=== PATIENT | female | born 1950 | race Hispanic/Latino ===

== ENCOUNTER 2020-05-15 15:23 | Observation (INO) | payer OTHER ==
[2020-05-15 16:12] LABS: Absolute Lymphocytes (CBC) 1.6 K/uL (0.7-4.9); Basophils % 0.3 % (0-1.3); Hematocrit 33.8 % (36.0-45.0); Lymphocytes % 29.2 % (15.3-44.8); MPV 9.5 fL (7.6-11.3); RBC Red Blood Cell Count 3.35 M/uL (3.86-4.86)
--- NOTE | 2020-05-15 16:29 | RAD REPORT ---
EXAM DESCRIPTION: RAD - Chest Single View - 05/15/2020 4:15 pm CLINICAL HISTORY: CHEST PAIN Chest pain. COMPARISON: No comparisons FINDINGS: Portable technique limits examination quality. The lungs are grossly clear. The heart is upper limit of normal in size. No displaced fractures. IMPRESSION: No acute intrathoracic process suspected.
[2020-05-15 16:41] LABS: ALT/SGPT 17 U/L (12-78); AST/SGOT 11 U/L (15-37); Albumin 3.8 g/dL (3.4-5.0); Alkaline Phosphatase 105 U/L (45-117); BUN Blood Urea Nitrogen 7 mg/dL (7-18); Bicarbonate 30 mmol/L (21-32); Bilirubin Direct < 0.1 mg/dL (0-0.2); Bilirubin Total 0.2 mg/dL (0.2-1.0); Glucose Level 116 mg/dL (74-106); NT PRO-BNP 468 pg/mL (<125); Potassium 3.4 mmol/L (3.5-5.1); Protein, Total 6.9 g/dL (6.4-8.2); Sodium Level 141 mmol/L (136-145); Troponin (Emerg Dept Use Only) < 0.02 ng/mL (0.0-0.045)
--- NOTE | 2020-05-15 17:53 | ER ---
Nurse's Notes [facility] Name: Laila Chou Age: 69 yrs Sex: Female : 1950 Arrival Date: 05/15/2020 Time: 15:32 Bed 5 Private MD: Diagnosis: Chest pain, unspecified Presentation: 05/15 15:32 Chief complaint: EMS states: Pt reports chest pain after bending over to pick something ph up at work, reports that it is sharp and stabbing, worse w/ deep breaths, denies N/V, SOB or dizziness, VSS, 12 lead normal. Coronavirus screen: Client denies travel out of the [place] in the last 14 days. At this time, the client does not indicate any symptoms associated with coronavirus-19. Ebola Screen: No symptoms or risks identified at this time. Initial Sepsis Screen: Does the patient meet any 2 criteria? No. Patient's initial sepsis screen is negative. Does the patient have a suspected source of infection? No. Patient's initial sepsis screen is negative. Risk Assessment: Do you want to hurt yourself or someone else? Patient reports no desire to harm self or others. Onset of symptoms was May 15, 2020. 15:32 Method Of Arrival: EMS: [facility] ph 15:32 Acuity: ANGELICA 3 ph Historical: - Allergies: 15:36 Aspirin; ph 15:36 Compazine; ph 15:36 Flexeril; ph 15:36 Imodium A-D; ph - Home Meds: 15:36 Omeprazole Oral [Active]; ph - Immunization history:: Adult Immunizations unknown. - Social history:: Smoking status: Patient denies any tobacco usage or history of. - Family history:: not pertinent. - Hospitalizations: : No recent hospitalization is reported. Screenin:37 Abuse screen: Denies threats or abuse. Denies injuries from another. Nutritional ph screening: No deficits noted. Tuberculosis screening: No symptoms or risk factors identified. Fall Risk None identified. Assessment: 15:38 General: Appears in no apparent distress. comfortable, well groomed, Behavior is calm, ph cooperative, appropriate for age, Denies fever, feeling ill. Pain: Complains of pain in anterior aspect of left upper chest Pain does not radiate. Quality of pain is described as sharp, stabbing, Pain began suddenly. Neuro: Level of Consciousness is awake, alert, obeys commands, Oriented to person, place, time, situation. Cardiovascular: Reports chest pain, Denies lightheadedness, nausea, palpitations, shortness of breath, Capillary refill < 3 seconds in bilateral fingers Patient's skin is warm and dry. Chest pain quality is sharp, stabbing, is located in left anterior chest wall began suddenly. Respiratory: Airway is patent Respiratory effort is even, unlabored, Respiratory pattern is regular, symmetrical, Denies shortness of breath. GI: No signs and/or symptoms were reported involving the gastrointestinal system. Derm: Skin is intact, is healthy with good turgor, Skin is pink, warm \T\ dry. 17:04 Reassessment: Patient appears in no apparent distress at this time. Patient and/or ph family updated on plan of care and expected duration. Pain level reassessed. Patient is alert, oriented x 3, equal unlabored respirations, skin warm/dry/pink. pt resting comfortably, VSS. 17:40 Reassessment: Pt taken to CT via stretcher. ph 19:04 Reassessment: Patient appears in no apparent distress at this time. Patient and/or ph family updated on plan of care and expected duration. Pain level reassessed. Patient is alert, oriented x 3, equal unlabored respirations, skin warm/dry/pink. 19:15 Reassessment: Patient appears in no apparent distress at this time. Patient and/or jb4 family updated on plan of care and expected duration. Pain level reassessed. Patient is alert, oriented x 3, equal unlabored respirations, skin warm/dry/pink. 20:03 Reassessment: Patient appears in no apparent distress at this time. Patient and/or jb4 family updated on plan of care and expected duration. Pain level reassessed. Patient is alert, oriented x 3, equal unlabored respirations, skin warm/dry/pink. Patient denies pain at this time. 20:05 Reassessment: Attempted to call report, receiving nurse is currently with a patient, jb4 instructed to wait for call back. 20:33 Reassessment: attempted to call report. no answer, will retry in 5 minutes. jb4 21:09 Reassessment: Patient appears in no apparent distress at this time. Patient and/or jb4 family updated on plan of care and expected duration. Pain level reassessed. Patient is alert, oriented x 3, equal unlabored respirations, skin warm/dry/pink. Report given to CODY King. Vital Signs: 15:32 BP 168 / 86; Pulse 68; Resp 18; Temp 98.1; Pulse Ox 100% on R/A; Weight 76.2 kg; Height ph 5 ft. 3 in. (160.02 cm); Pain 2/10; 17:05 BP 148 / 72; Pulse 61; Resp 18; Pulse Ox 99% on R/A; ph 18:00 BP 149 / 78; Pulse 61; Resp 18; Pulse Ox 99% on R/A; ph 19:00 BP 154 / 68; Pulse 67; Resp 16; Pulse Ox 98% on R/A; jb4 20:00 BP 142 / 66; Pulse 94; Resp 16; Temp 97.5(TE); Pulse Ox 99% on R/A; Pain 0/10; jb4 21:00 BP 144 / 63; Pulse 63; Resp 16; Pulse Ox 99% on R/A; jb4 15:32 Body Mass Index 29.76 (76.20 kg, 160.02 cm) ph ED Course: 15:32 Patient arrived in ED. ph 15:32 Curt Torres MD is Attending Physician. rn 15:36 Triage completed. ph 15:37 Arm band placed on Patient placed in an exam room, in a wheelchair, on conveyor monitor, ph on pulse oximetry. 15:37 Patient has correct armband on for positive identification. Placed in gown. Bed in low ph position. Call light in reach. Side rails up X 1. traffic monitor specialist on. Pulse ox on. NIBP on. Door closed. Noise minimized. Warm blanket given. 15:37 Maintain EMS IV. Dressing intact. Good blood return noted. Site clean \T\ dry. Gauge \T\ ph site: 18G LAC. Patient maintains SpO2 saturation greater than 95% on room air. 16:00 Melissa James, RN is Primary Nurse. ph 16:14 EKG done, by ED staff, reviewed by Curt Torres MD. dh3 16:15 XRAY Chest (1 view) In Process Unspecified. EDMS 17:47 CT Chest For PE Angio In Process Unspecified. EDMS 17:52 Shanique Higgins MD is Hospitalizing Provider. rn 19:05 Primary Nurse role handed off by Melissa James RN jb4 19:05 Shadi Paul, RN is Primary Nurse. jb4 20:06 No provider procedures requiring assistance completed. Patient admitted, IV remains in bb place. Administered Medications: No medications were administered Outcome: 17:53 Decision to Hospitalize by Provider. rn 20:06 Condition: stable bb 20:06 Instructed on the need for admit. 21:10 Admitted to Tele accompanied by tech, via wheelchair, room 405, with chart, Report jb4 called to CODY King 21:20 Patient left the ED. jb4 Signatures: Dispatcher [employer] EDMS Mary Broderick RN RN Curt Yanes MD MD rn Hall, Patricia, RN RN Shadi Paul, RN RN jb4 [facility]
--- NOTE | 2020-05-15 17:54 | EDPHYS ---
Physician Documentation [facility] Name: Laila Chou Age: 69 yrs Sex: Female : 1950 Arrival Date: 05/15/2020 Time: 15:32 Bed 5 Private MD: ED Physician Curt Torres HPI: 05/15 15:34 This 69 yrs old Female presents to ER via Unassigned with complaints of Chest rn Pain. 15:34 The patient or guardian reports chest pain that is located primarily in the anterior rn chest wall. Onset: today. The pain does not radiate. The chest pain is described as sharp, stabbing. Duration: The patient or guardian reports multiple episodes, that are intermittent. Modifying factors: The symptoms are alleviated by nothing. the symptoms are aggravated by deep breath. Severity of pain: At its worst the pain was moderate in the emergency department the pain has improved. The patient has not experienced similar symptoms in the past. 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 No trauma recently, no hemoptysis, no sob, no cough, no abd pain. No hx of dvt/PE. No hx of cardiac problems. . Historical: - Allergies: 15:36 Aspirin; ph 15:36 Compazine; ph 15:36 Flexeril; ph 15:36 Imodium A-D; ph - Home Meds: 15:36 Omeprazole Oral [Active]; ph - Immunization history:: Adult Immunizations unknown. - Social history:: Smoking status: Patient denies any tobacco usage or history of. - Family history:: not pertinent. - Hospitalizations: : No recent hospitalization is reported. ROS: 15:34 Constitutional: Negative for fever, chills, and weight loss, Eyes: Negative for injury, rn pain, redness, and discharge, ENT: Negative for injury, pain, and discharge, Neck: Negative for injury, pain, and swelling, Cardiovascular: Negative for palpitations, and edema, Respiratory: Negative for shortness of breath, cough, wheezing, + pleuritic chest pain, Abdomen/GI: Negative for abdominal pain, nausea, vomiting, diarrhea, and constipation, MS/Extremity: Negative for injury and deformity, Skin: Negative for injury, rash, and discoloration, Neuro: Negative for headache, weakness, numbness, tingling, and seizure. Exam: 15:34 Constitutional: This is a well developed, well nourished patient who is awake, alert, rn and in no acute distress. Head/Face: Normocephalic, atraumatic. Neck: Trachea midline, no masses palpated, and no cervical lymphadenopathy. Supple, full range of motion without nuchal rigidity, or vertebral point tenderness. No Meningismus. Chest/axilla: Normal chest wall appearance and motion. Nontender with no deformity. No lesions are appreciated. Cardiovascular: Regular rate and rhythm. No pulse deficits. Respiratory: Speaking full sentences, joking. No increased work of breathing, no retractions or nasal flaring. Abdomen/GI: soft, non-tender MS/ Extremity: Pulses equal, no cyanosis. Neurovascular intact. Full, normal range of motion. Equal circumference. Neuro: Awake and alert, GCS 15, oriented to person, place, time, and situation. Cranial nerves II-XII grossly intact. Motor strength 5/5 in all extremities. Sensory grossly intact. Cerebellar exam normal. 17:00 ECG was reviewed by the Attending Physician. rn Vital Signs: 15:32 BP 168 / 86; Pulse 68; Resp 18; Temp 98.1; Pulse Ox 100% on R/A; Weight 76.2 kg; Height ph 5 ft. 3 in. (160.02 cm); Pain 2/10; 17:05 BP 148 / 72; Pulse 61; Resp 18; Pulse Ox 99% on R/A; ph 18:00 BP 149 / 78; Pulse 61; Resp 18; Pulse Ox 99% on R/A; ph 19:00 BP 154 / 68; Pulse 67; Resp 16; Pulse Ox 98% on R/A; jb4 20:00 BP 142 / 66; Pulse 94; Resp 16; Temp 97.5(TE); Pulse Ox 99% on R/A; Pain 0/10; jb4 21:00 BP 144 / 63; Pulse 63; Resp 16; Pulse Ox 99% on R/A; jb4 15:32 Body Mass Index 29.76 (76.20 kg, 160.02 cm) ph MDM: 15:32 Patient medically screened. rn 17:51 Differential diagnosis: abnormal EKG, acute myocardial infarction, acute pericarditis, rn anxiety, coronary artery disease chest wall pain, costochondritis, gastroesophageal reflux disease (GERD), pleurisy, pneumothorax, pulmonary embolus, stable angina. Data reviewed: vital signs, nurses notes, lab test result(s), EKG, radiologic studies, plain films, and as a result, I will admit patient. Counseling: I had a detailed discussion with the patient and/or guardian regarding: the historical points, exam findings, and any diagnostic results supporting the discharge/admit diagnosis, lab results, radiology results, the need for further work-up and treatment in the hospital. Response to treatment: the patient's symptoms have mildly improved after treatment, and as a result, I will admit patient. Admission orders: after a detailed discussion of the patient's condition and case, the admit orders are written by me. ED course: Twave inversions anterolateral leads, neg trop, no obvious etiology of chest pain, will admit for chest pain w/u. . 05/15 15:33 Order name: Basic Metabolic Panel; Complete Time: 16:51 rn 05/15 15:33 Order name: CBC with Diff; Complete Time: 16:29 rn 05/15 15:33 Order name: LFT's; Complete Time: 16:51 rn 05/15 15:33 Order name: NT PRO-BNP; Complete Time: 16:51 rn 05/15 15:33 Order name: Troponin (emerg Dept Use Only); Complete Time: 16:51 rn 05/15 15:33 Order name: D-Dimer; Complete Time: 16:29 rn 05/15 19:31 Order name: Basic Metabolic Panel EDVT 05/15 19:31 Order name: Basic Metabolic Panel EDVT 05/15 19:31 Order name: CBC with Automated Diff EDMS 05/15 19:31 Order name: CBC with Automated Diff EDMS 05/15 19:31 Order name: Magnesium EDMS 05/15 19:31 Order name: Magnesium EDMS 05/15 19:31 Order name: Troponin I EDVT 05/15 19:31 Order name: Troponin I EDVT 05/15 15:33 Order name: XRAY Chest (1 view); Complete Time: 16:51 rn 05/15 15:33 Order name: EKG; Complete Time: 15:34 rn 05/15 15:33 Order name: Cardiac monitoring; Complete Time: 16:03 rn 05/15 15:33 Order name: EKG - Nurse/Tech; Complete Time: 16:15 rn 05/15 15:33 Order name: IV Saline Lock; Complete Time: 16:03 rn 05/15 15:33 Order name: Labs collected and sent; Complete Time: 16:03 rn 05/15 15:33 Order name: O2 Per Protocol; Complete Time: 16:03 rn 05/15 16:21 Order name: CT Chest For PE Angio; Complete Time: 18:03 rn 05/15 19:28 Order name: CONS Physician Consult EDVT 05/15 19:31 Order name: Heart Healthy EDVT 05/15 19:31 Order name: Troponin I EDVT 05/15 19:31 Order name: Troponin I EDVT 05/15 19:31 Order name: Troponin I EDVT 05/15 19:31 Order name: Troponin I EDVT 05/15 19:32 Order name: Urinalysis EDVT 05/15 19:32 Order name: Echo with Doppler EDVT 05/15 15:33 Order name: O2 Sat Monitoring; Complete Time: 16:03 rn EC:00 Rate is 62 beats/min. Rhythm is regular. QRS [place] is Normal. NM interval is normal. QRS rn interval is normal. QT interval is normal. No Q waves. T waves are Inverted in leads V1, V2, V3, V4, V5, V6. No ST changes noted. Clinical impression: NSR w/ Non-specific ST/T Changes. Interpreted by me. Reviewed by me. Administered Medications: No medications were administered Disposition: 05/15/20 17:53 Hospitalization ordered by Shanique Higgins for Observation. Preliminary diagnosis is Chest pain, unspecified. - Bed requested for Telemetry/MedSurg (observation). - Status is Observation. jb4 - Condition is Stable. - Problem is new. - Symptoms have improved. Signatures: Dispatcher [employer] EDVT Curt Torres MD MD rn Hall, Patricia, RN RN ph Garcia, Cindy, RN RN cg Bryson, James, RN RN jb4 Corrections: (The following items were deleted from the chart) 19:42 17:53 Hospitalization Ordered by Shanique Higgins MD for Observation. Preliminary diagnosis is Chest pain, unspecified. Bed requested for Telemetry/MedSurg (observation). Status is Observation. Condition is Stable. Problem is new. Symptoms have improved. rn 21:20 19:42 05/15/2020 17:53 Hospitalization Ordered by Shanique Higgins MD for Observation. jb4 Preliminary diagnosis is Chest pain, unspecified. Bed requested for Telemetry/MedSurg (observation). Status is Observation. Condition is Stable. Problem is new. Symptoms have improved. cg
--- NOTE | 2020-05-15 18:00 | RAD REPORT ---
EXAM DESCRIPTION: CT - Chest For Pe Angio - 05/15/2020 5:47 pm CLINICAL HISTORY: Chest pain. CHEST PAIN COMPARISON: <Comparisons> TECHNIQUE: CT angiogram of the pulmonary arteries was performed with MIP. All CT scans are performed using dose optimization technique as appropriate and may include automated exposure control or mA/KV adjustment according to patient size. FINDINGS: No evidence of pulmonary thromboembolism. No acute aortic finding demonstrated. The lungs are clear. No significant pericardial or pleural fluid. No concerning bony finding. IMPRESSION: No evidence of pulmonary thromboembolism. No acute lung findings.
[2020-05-15] MEDS ORDERED: ZOLPIDEM TARTRATE 5 MG TABLET PO PRN (19:28)
--- NOTE | 2020-05-15 19:42 | P.HP ---
Certification for Inpatient Patient admitted to: Observation With expected LOS: <2 Midnights Patient will require the following post-hospital care: None Practitioner: I am a practitioner with admitting privileges, knowledge of patient current condition, hospital course, and medical plan of care. Services: Services provided to patient in accordance with Admission requirements found in Title 42 Section 412.3 of the Code of Federal Regulations <Khoi Mendoza - Last Filed: 05/15/20 19:32> Patient History Date of Service: 05/15/20 Reason for admission: Atypical chest pain History of Present Illness: 69-year-old female with no significant past medical history other than GERD presents to the emergency room complaining of chest pain. Patient states that she was at work earlier today and had a sudden acute onset of chest pain in the central part of her chest. States it felt like a stabbing pain. Did not radiate. It is not reproducible by chest palpation. States that the sharp stabbing pain that lasted approximately 20 min. In the emergency room patient's lab work overall looks benign. Her D-dimer slightly elevated at 977. CT angiogram was negative for PE and no acute lung finding. Her proBNP is 468 and her troponin is negative at <0.02. EKG did show some questionable T-wave inversions on leads 1 through 5. Patient's chest pain at the time of examination has resolved. She is alert and oriented and in no distress. Pleasant and cooperative. Has no cardiac history. States she had a stress test done approximately 3 years ago which was negative. States everything looked fine. Patient will be placed in observation overnite and further evaluated. - Past Medical/Surgical History -: GERD -: None Psychosocial/ Personal History: Lives at home - Family History Family History: Reviewed- Non-Contributory - Social History Smoking Status: Never smoker Alcohol use: No CD- Drugs: No Caffeine use: No Place of Residence: Home <Khoi Mendoza - Last Filed: 05/15/20 19:32> Date of Service: 05/15/20 <Shanique Higgins - Last Filed: 05/17/20 15:57> Allergies aspirin Allergy (Verified 05/15/20 21:47) Nausea/Vomiting cyclobenzaprine [From Flexeril] Allergy (Verified 05/15/20 21:47) Anaphylaxis loperamide Allergy (Verified 05/15/20 21:47) Anaphylaxis prochlorperazine [From Compazine] Allergy (Verified 05/15/20 21:47) Anaphylaxis Home Medications: Acetaminophen [Tylenol Extra Strength] 500 mg PO Q4HP PRN 05/15/20 Cholecalciferol (Vitamin D3) [Vitamin D 1000 Iu Tab*] 1,000 unit PO DAILY 05/15/20 Magnesium Oxide [Magnesium] 250 mg PO DAILY 05/15/20 Omeprazole [Prilosec] 40 mg PO DAILY 05/15/20 Zolpidem Tartrate [Ambien*] 5 mg PO BEDTIME PRN 05/15/20 Pantoprazole [Protonix Tab*] 40 mg PO DAILYAC #30 tab 05/16/20 Review of Systems General: As per HPI Eyes: Unremarkable ENT: Unremarkable Respiratory: Unremarkable Cardiovascular: Chest Pain, As per HPI Gastrointestinal: Unremarkable Genitourinary: Unremarkable Musculoskeletal: Unremarkable Integumentary: Unremarkable Neurological: Unremarkable Lymphatics: Unremarkable <Khoi Mendoza - Last Filed: 05/15/20 19:32> Physical Examination - Vital Signs Temperature: 98.1 F Blood Pressure: 148/72 Pulse: 68 Respirations: 18 Pulse Ox (%): 100 (RA) - Physical Exam General: Alert, In no apparent distress, Oriented x3 HEENT: Atraumatic, Normocephalic, PERRLA Neck: Supple, No Thyromegaly, Other (Trachea midline) Respiratory: Clear to auscultation bilaterally, Normal air movement Cardiovascular: No edema, Normal pulses, Regular rate/rhythm Capillary refill: <2 Seconds Gastrointestinal: Normal bowel sounds, Soft and benign, Non-distended Musculoskeletal: No clubbing, No swelling, No contractures, No erythema, No tenderness Integumentary: No rashes, No breakdown, No significant lesion, No tenderness/swelling Neurological: Normal gait, Normal speech, Normal strength at 5/5 x4 extr, Normal tone - Studies Laboratory Data (last 24 hrs) 05/15/20 15:55: WBC 5.6, Hgb 11.6 L, Hct 33.8 L, Plt Count 193 05/15/20 15:55: Sodium 141, Potassium 3.4 L, BUN 7, Creatinine 0.96, Glucose 116 H, Total Bilirubin 0.2, AST 11 L, ALT 17, Alkaline Phosphatase 105 <Khoi Mendoza - Last Filed: 05/15/20 19:32> Assessment and Plan - Plan Impression: Atypical chest pain: GERD: Plan: Atypical chest pain: Chest pain described as sharp and stabbing. Resolved in the ED. Troponin negative x1. Will continue to trend. EKG with subtle changes on leads V1 through 5. T-wave inversion. BNP elevated at 468. Will order echocardiogram. Place patient on telemetry. Continue to trend troponins. Cardiology consult for the morning. GERD: Continue omeprazole 40 mg daily. Discharge Plan: Home Plan to discharge in: 24 Hours - Advance Directives Does patient have a Living Will: No Does patient have a Durable POA for Healthcare: No - Code Status/Comfort Care Code Status Assessed: Yes Time Spent Managing Pts Care (In Minutes): 55 <Khoi Mendoza - Last Filed: 05/15/20 19:32> Date of Service: 05/15/20 Patient's chart reviewed. Events of the last 24 hours have been noted. Patient is clinically doing well with no new complaints. Anticipate discharge in the morning. <Shanique Higgins - Last Filed: 05/17/20 15:57>
[2020-05-15 22:16] VITALS: BMI 29.7
[2020-05-16] MEDS: HEPARIN 5000 UNIT/ML 1 ML VIAL SQ SCH ×2 (01:14→09:00)
[2020-05-16 06:22] LABS: Basophils % 0.3 % (0-1.3); Hematocrit 35.1 % (36.0-45.0); Lymphocytes % 40.8 % (15.3-44.8); MPV 9.4 fL (7.6-11.3); RBC Red Blood Cell Count 3.47 M/uL (3.86-4.86)
[2020-05-16 06:25] LABS: Urine Appearance CLEAR; Urine Bilirubin NEGATIVE (NEG); Urine Blood NEGATIVE (NEG); Urine Color YELLOW; Urine Glucose NEGATIVE (NEG); Urine Protein NEGATIVE (NEG); Urine Specific Gravity 1.025 (1.005-1.030); Urine Urobilinogen 0.2 mg/dL (0.2-1.0); Urine pH 6.5 (5.0-7.0)
[2020-05-16 06:29] LABS: Urine Microscopic Reflex ORDER UMIC
[2020-05-16 06:30] LABS: BUN Blood Urea Nitrogen 10 mg/dL (7-18); Bicarbonate 29 mmol/L (21-32); Glucose Level 105 mg/dL (74-106); Potassium 3.8 mmol/L (3.5-5.1); Sodium Level 142 mmol/L (136-145)
[2020-05-16] MEDS ORDERED: PANTOPRAZOLE 40MG TABLET PO SCH (06:30)
[2020-05-16 06:37] LABS: Urine Bacteria <20 /HPF (<20); Urine Culture Reflex Order REFLEXED; Urine RBC NONE SEEN /HPF (NONE SEEN)
[2020-05-16] MEDS ORDERED: POTASSIUM CL SA 10 MEQ TAB PO ONE (08:00)
[2020-05-16] MEDS ORDERED: PNEUMOCOCCAL VACCINE 0.5 ML IMVAC ONE (08:00)
[2020-05-16] MEDS ORDERED: INFLUENZA VACCINE (for 3y+) 0.5 ML DOSE IMVAC ONE (08:00)
[2020-05-16 09:41] VITALS: BP 132/67; TEMP 97.3; O2SAT 95
--- NOTE | 2020-05-17 06:00 | EKG ---
Test Date: 2020-05-15 Test Time: 16:14:49 Critical Care Physician Assistant: LATASHA MEASUREMENT RESULTS: Intervals: Rate: 62 GA: 148 QRSD: 78 QT: 448 QTc: 454 [place]: P: 42 GA: 148 QRS: 54 T: 127 INTERPRETIVE STATEMENTS: Normal sinus rhythm T wave abnormality, consider anterior ischemia Abnormal ECG No previous ECG available for comparison Electronically Signed On 05-17-20 05:56:15 CDT by Sony Simon
--- NOTE | 2020-05-17 15:58 | P.DS ---
Discharge Date: 05/16/20 Disposition: ROUTINE DISCHARGE Discharge Condition: GOOD Reason for Admission: Atypical chest pain Brief History of Present Illness: Patient is a 69-year-old female with no significant past medical history other than GERD presents to the emergency room complaining of chest pain. Patient states that she was at work earlier today and had a sudden acute onset of chest pain in the central part of her chest. States it felt like a stabbing pain. Did not radiate. It is not reproducible by chest palpation. States that the sharp stabbing pain that lasted approximately 20 min. In the emergency room patient's lab work overall looks benign. Her D-dimer slightly elevated at 977. CT angiogram was negative for PE and no acute lung finding. Her proBNP is 468 and her troponin is negative at <0.02. EKG did show some questionable T-wave inversions on leads 1 through 5. Patient's chest pain at the time of examination has resolved. She is alert and oriented and in no distress. Pleasant and cooperative. Has no cardiac history. States she had a stress test done approximately 3 years ago which was negative. States everything looked fine. Patient will be placed in observation overnite and further evaluated. Hospital Course: Patient is clinically doing well with no new complaints. At this time, patient is stable for discharge home with outpatient follow-up. Return to the ER symptoms worsen. Patient will need to see cardiology as an outpatient for stress test. Vital Signs/Physical Exam: Temp Pulse Resp BP Pulse Ox 97.3 F 67 18 132/67 95 05/16/20 08:00 05/16/20 08:00 05/16/20 08:00 05/16/20 08:00 05/16/20 08:00 General: Alert, In no apparent distress, Oriented x3 Laboratory Data at Discharge: WBC 4.9 K/uL (4.3-10.9) 05/16/20 05:58 Hgb 11.9 g/dL (12.0-15.0) L 05/16/20 05:58 Hct 35.1 % (36.0-45.0) L 05/16/20 05:58 Plt Count 190 K/uL (152-406) 05/16/20 05:58 Sodium 142 mmol/L (136-145) 05/16/20 05:58 Potassium 3.8 mmol/L (3.5-5.1) 05/16/20 05:58 BUN 10 mg/dL (7-18) 05/16/20 05:58 Creatinine 0.61 mg/dL (0.55-1.3) 05/16/20 05:58 Glucose 105 mg/dL (74-106) 05/16/20 05:58 Magnesium 2.0 mg/dL (1.8-2.4) 05/16/20 05:58 Total Bilirubin 0.2 mg/dL (0.2-1.0) 05/15/20 15:55 AST 11 U/L (15-37) L 05/15/20 15:55 ALT 17 U/L (12-78) 05/15/20 15:55 Alkaline Phosphatase 105 U/L (45-117) 05/15/20 15:55 Troponin I Cancelled 05/16/20 20:00 Home Medications: Acetaminophen [Tylenol Extra Strength] 500 mg PO Q4HP PRN 05/15/20 Cholecalciferol (Vitamin D3) [Vitamin D 1000 Iu Tab*] 1,000 unit PO DAILY 05/15/20 Magnesium Oxide [Magnesium] 250 mg PO DAILY 05/15/20 Omeprazole [Prilosec] 40 mg PO DAILY 05/15/20 Zolpidem Tartrate [Ambien*] 5 mg PO BEDTIME PRN 05/15/20 Pantoprazole [Protonix Tab*] 40 mg PO DAILYAC #30 tab 05/16/20 New Medications: Pantoprazole [Protonix Tab*] 40 mg PO DAILYAC #30 tab Patient Discharge Instructions: OK TO DC IV AND DC HOME. FOLLOW-UP WITH PRIMARY CARE PROVIDER IN 1-2 WEEKS. FOLLOW-UP WITH CARDIOLOGY IN 1-2 WEEKS. RETURN TO THE ER IF symptoms worsen. CALL or TEXT DR. RAMOS AT [phone] IF ANY QUESTIONS REGARDING HOSPITAL STAY. PLEASE CALL THE FLOOR AT [phone] IF ANY MEDICATION OR NURSING QUESTIONS. Diet: AHA Activity: Fall precautions Time spent managing pt's care (in minutes): 30
--- OUTSIDE RECORDS SUMMARY | 2020-05-18 08:45 | XMS REPORT | Clinical Summary ---
:1950 Author Organization [facility] Address [address] [place] [address] Care Team Providers Name Role Phone MD John Primary Care Provider Allergies Active Allergy Reactions Severity Noted Date Comments Aspirin 01/29/2016 Prochlorperazine 01/29/2016 Cyclobenzaprine 01/29/2016 Loperamide 01/29/2016 Medications Medication Sig Dispensed Refills Start Date End Date Status omeprazole TAKE ONE (1) 90 capsule 2 01/04/2020 Acti ve (PriLOSEC) 20 MG CAPSULE(S) BY capsule MOUTH ONCE A DAY. magnesium 200 mg Take by 0 Act eddie tablet mouth. zolpidem (AMBIEN) Take 5 mg by 0 Active 5 MG tablet mouth nightly as needed for sleep. gabapentin Take 1 60 capsule 0 02/29/2020 Active (NEURONTIN) 300 mg capsule (300 capsule mg total) by mouth 2 (two) times a day. cholecalciferol, Take 1,000 0 Di scontinued vitamin D3, Units by 0 (VITAMIN D3) 1,000 mouth daily. unit tablet cetirizine Take 1 tablet 30 tablet 0 03/30/2019 Disc ontinued (ZyrTEC) 10 MG (10 mg total) 0 tablet by mouth daily. omeprazole TAKE ONE (1) 90 capsule 3 03/30/2019 Disc ontinued (PriLOSEC) 20 MG CAPSULE(S) BY 0 capsule MOUTH ONCE A DAY. meloxicam (MOBIC) Take 1 tablet 30 tablet 0 06/10/2019 01 Discontinued 15 mg tablet (15 mg total) 9 (Re order) by mouth daily as needed for moderate pain for up to 30 days. zolpidem (AMBIEN) Take 1 tablet 30 tablet 2 06/10/2019 01 5 MG tablet (5 mg total) 9 by mouth nightly as needed for sleep for up to 30 days. traMADol (ULTRAM) Take 1 tablet 10 tablet 1 07/01/2019 50 mg (50 mg total) 9 tabletIndications: by mouth acute pain every 12 (twelve) hours as needed for moderate pain for up to 5 days .Acute Pain. meloxicam (MOBIC) Take 1 tablet 30 tablet 0 07/01/2019 15 mg tablet (15 mg total) 9 by mouth daily as needed for moderate pain for up to 30 days. amoxicillin-pot Take 1 tablet 20 tablet 0 08/03/2019 clavulanate by mouth 2 0 (AUGMENTIN) (two) times a 875-125 mg per day for 10 tablet days. acetaminophen Take 1 tablet 20 tablet 0 09/13/2019 E xpired (TYLENOL EXTRA (500 mg 0 STRENGTH) 500 MG total) by tablet mouth every 6 (six) hours as needed for mild pain or moderate pain for up to 5 days. diazePAM (VALIUM) Take 1 tablet 16 tablet 0 09/13/2019 02 5 MG tablet (5 mg total) 0 by mouth every 6 (six) hours as needed for muscle spasms for up to 4 days. diazePAM (VALIUM) Take 5 mg by 0 Discontinued 5 MG tablet mouth every 6 0 (Med List (six) hours Cleanup) as needed for anxiety. carisoprodoL Take 1 tablet 30 tablet 0 09/24/2019 Di scontinued (SOMA) 350 MG (350 mg 0 (Reord er) tablet total) by mouth nightly as needed for muscle spasms for up to 30 days. carisoprodoL Take 1 tablet 30 tablet 0 10/01/2019 Ex pired (SOMA) 350 MG (350 mg 0 tablet total) by mouth nightly as needed for muscle spasms for up to 30 days. meloxicam (MOBIC) Take 1 tablet 30 tablet 0 10/01/2019 02 15 mg tablet (15 mg total) 0 by mouth daily as needed for moderate pain for up to 30 days. meloxicam (MOBIC) Take 1 tablet 30 tablet 3 12/02/2019 02 Discontinued 7.5 mg tablet (7.5 mg 0 (Reord er) total) by mouth daily. zolpidem (AMBIEN) Take 5 mg by 0 Discontinued 5 MG tablet mouth nightly 0 (Reo rder) as needed for sleep. zolpidem (AMBIEN) Take 1 tablet 30 tablet 2 01/05/2020 02 5 MG tablet (5 mg total) 0 by mouth nightly as needed for sleep for up to 30 days. carisoprodoL Take 1 tablet 45 tablet 0 02/29/2020 Ex pired (Soma) 350 MG (350 mg 0 tablet total) by mouth 3 (three) times a day as needed for muscle spasms (can cause drowsiness) for up to 15 days. carisoprodoL Take 1 tablet 30 tablet 2 04/10/2020 Ex pired (Soma) 350 MG (350 mg 0 tablet total) by mouth 2 (two) times a day as needed for muscle spasms for up to 15 days. meloxicam (MOBIC) Take 1 tablet 30 tablet 0 04/10/2020 02 15 mg tablet (15 mg total) 0 by mouth daily for 30 days. Hospital, Clinic, or Ordered Dose Route Frequency Start Date End D ate Status Other Facility Administered Medication dexamethasone (DECADRON) 10 mg IM every 12 hours 04/10/2020 Active injection 10 mgIndications: Strain of right trapezius muscle, initial encounter methylPREDNISolone 40 mg IM once 04/10/2020 Ended acetate (DEPO-MEDROL) 0 injection 40 mgIndications: Strain of right trapezius muscle, initial encounter Active Problems Problem Noted Date History of wrist fracture 11/26/2018 Vitamin D deficiency 08/26/2018 Osteoarthritis of finger of right hand 01/22/2018 Orthopedic aftercare 01/22/2018 Osteopenia 09/11/2017 Bilateral low back pain with left-sided sciatica 06/30 Dermatophytosis, nail 03/24/2017 Complete tear of left rotator cuff 01/23/2017 Degenerative tear of glenoid labrum of left shoulder 0 12/25/2016 Incomplete tear of left rotator cuff 12/25/2016 Acute pain of left shoulder 12/12/2016 Left shoulder tendonitis 12/04/2016 Strain of left biceps muscle 12/04/2016 Arthritis of right hand 10/09/2016 Postmenopausal atrophic vaginitis 10/09/2016 Bladder prolapse, female, acquired 07/12/2016 Hyperlipidemia LDL goal <130 07/12/2016 Insomnia 07/12/2016 Immunization due 07/12/2016 Shoulder, capsulitis, adhesive 04/09/2016 Encounters Date Type Specialty Care Team Description 05/16/2020 Travel 04/10/2020 Office Visit Internal Medicine John Strain of right trapezius muscle, initial encounter (Primary Dx); , Demarcus Cervical radicu cathleen VELASQUEZ 04/10/2020 Telephone Internal Medicine Demarcus Lopez MD 04/10/2020 Travel 04/07/2020 Travel 03/31/2020 Travel 02/29/2020 Office Visit Internal Medicine John Acute allen n of right shoulder (Primary Dx); , Demarcus, Strain of right trapezius muscle, initial encounter; Cervical radiemil litbarry 02/29/2020 Travel 02/23/2020 Travel 01/19/2020 Office Visit Internal Medicine John Dental ca vities (Primary Dx); , Demarcus, Insomnia, unspe cified type; MD Heraclio conde reflux disease without esophagitis; Bilateral low b ack pain with left-sided sciatica, unspecified chronicity; Overweight (BMI 25.0-29.9) 01/19/2020 Travel 01/17/2020 Travel 01/05/2020 Office Visit Internal Medicine John Insomnia, unspecified type (Primary Dx); , Demarcus Gastroesophagea l reflux disease without esophagitis; Greater trochan teric bursitis, left 01/05/2020 Travel 01/04/2020 Refill Internal Medicine Demarcus Lopez MD 12/26/2019 Refill Internal Medicine Demarcus Lopez MD 12/21/2019 Procedure visit Pain Medicine Jared Valle, bursitis of le ft hip (Primary Dx) 12/21/2019 Travel 12/10/2019 Telemedicine Pain Medicine Tori, Greater trocha nteric bursitis of left hip (Primary Dx); Audie Montalvo, Chronic bilate ral low back pain without sciatica; Pain of right h ip joint 12/10/2019 Travel 12/06/2019 Hospital Encounter Radiology Tori, Chronic b ilateral low Audie Montalvo, back pain with out MD sciatica 12/06/2019 Hospital Encounter Radiology Tori, Pain of r ight hip joint Audie Montalvo MD 12/06/2019 Travel 12/02/2019 Telemedicine Pain Medicine Tori, Chronic bilate ral low back pain without sciatica (Primary Dx); Audie Montalvo, Pain of right hip joint; Greater trochan teric bursitis of left hip; Chronic left-si ded low back pain without sciatica; Myofascial musc le pain 12/02/2019 Travel 12/01/2019 Travel 10/18/2019 Transcribe [facility] [place] , Demarcus, mammogram for m alignant neoplasm of yadira ast (Primary Dx) 10/14/2019 Orders Only Internal Medicine Holly Figueroa, Rectal ble eding (Primary MA Dx) 10/14/2019 Orders Only Internal Medicine Holly Figueroa, Rectal ble eding (Primary MA Dx) 10/14/2019 Telephone Internal Medicine Demarcus Lopez MD 10/01/2019 Office Visit Internal Medicine John Acute rig ht-sided low back pain with right-sided sciatica (Primary Dx); , Demarcus, Acute nonintrac table headache, unspecified headache type; Muscle spasm 10/01/2019 Telephone Internal Medicine Demarcus Lopez MD 09/24/2019 Office Visit Internal Medicine John Acute lef t-sided thoracic back pain (Primary Dx); , Demarcus Muscle spasm 09/13/2019 Emergency Emergency Medicine Harsh, Periscapu lar pain (Primary Dx); Victor M Balderrama MD Muscle strain o f right upper back, initial encounter 09/13/2019 Nurse Triage Access Dyan Verduzco RN 08/03/2019 Office Visit Internal Medicine John Swelling of left parotid gland (Primary Dx); , Demarcus, Jaw pain 08/02/2019 Telephone Internal Medicine Demarcus Lopez MD 07/07/2019 Procedure visit Pain Medicine Tori, Greater tro chanteric Audie Montalvo, bursitis of le ft hip (Primary Dx) 07/01/2019 Office Visit Pain Medicine Tori, Greater trocha nteric bursitis of left hip (Primary Dx); Audie Montalvo, Chronic left-s ided low back pain without sciatica; Myofascial musc le pain 06/10/2019 Office Visit Internal Medicine John Immunizat ion due (Primary Dx); , Demarcus, Pedal edema; Greater trochan teric bursitis of left hip; Insomnia, unspe cified type after 05/17/2019 Immunizations Name Administration Dates Next Due FLUZONE HIGH-DOSE PF 06/10/2019, 08/26/2018, 06/09/2017 FLUZONE QUAD 07/12/2016 Influenza Trivalent 04/25/2015 Pneumococcal Conjugate 13-Valent 07/12/2016 Tdap 01/26/2019, 06/19/2017 Surgical History Surgery Date Site/Laterality Comments CERVICAL FUSION 6 level cervical fusion PARTIAL HYSTERECTOMY ovaries int act. due to bleeding. HAND FUSION hand surgery, wi th metal, left, 2013 HEEL SPUR SURGERY GANGLION CYST EXCISION 3 in left hand and wrist BLADDER SUSPENSION HERNIA REPAIR REPAIR, ROTATOR CUFF, 01/10/2017 Shoulder/Left Procedure: LEFT SHOULDER ARTHROSCOPIC ARTHROSCOPY, ROT ATOR CUFF REPAIR, SUBACROM IAL DECOMPRESSION, L ABRAL DEBRIDEMENT, BIC EPS TENOTOMY; Surgeon: Jimbo Fan MD; Location: [facility] OR; Service: Orthope dics; Laterality: Left ; Medical devices from this surgery are in t he Implants section. ARTHRODESIS, IP JOINT 12/22/2017 Hand/Right Procedure: RIGHT INDEX PIP AND DIP FUSION, RIGHT MIDDLE DIP FUSION; Jania geon: Lazaro Damian MD; Location: [facility] OR; Service: Orthope dics; Laterality: Righ t; Medical devices from this surgery are in t he Implants section. Medical History Medical History Date Comments Osteoporosis Insomnia [place], normal GERD (gastroesophageal reflux disease) Family History Medical History Relation Name Comments Kidney failure Mother Cancer Sister Ovarian Ovarian cancer Sister chemo, radiation Relation Name Status Comments Father Mother Sister Social History Tobacco Use Types Packs/Day Years Used Date Never Smoker Smokeless Tobacco: Never Used Alcohol Use Drinks/Week oz/Week Comments No Sex Assigned at Date Recorded Not on file COVID-19 Exposure Response Date Recorded In the last month, have you been in contact with No / Unsure 05/16/2020 2:07 PM CDT someone who was confirmed or suspected to have Coronavirus / COVID-19? Obstetrics History Grav Para Term Pre Abrt (TAB) (SAB) (Ect) Mult Lvng Comments 3 3 3 0 0 0 0 0 0 3 Date Outcome GA Total Labor/2nd/3rd Weight Sex Delivery Anes PTL Jakcelin A 1 A5 Name Clin Labor Term Vag-Spont Term Vag-Spont Term Vag-Spont Last Filed Vital Signs Vital Sign Reading Time Taken Comments Blood Pressure 145/76 04/10/2020 11:44 AM CDT Pulse 62 04/10/2020 11:44 AM CDT Temperature 36.8 C (98.2 F) 04/10/2020 11:44 AM CDT Respiratory Rate 18 09/13/2019 1:24 PM AUTO VINYL TOP INSTALLER Oxygen Saturation 99% 04/10/2020 11:44 AM CDT Inhaled Oxygen Concentration - - Weight 76.7 kg (169 lb) 04/10/2020 11:44 AM CDT Height 160 cm (5' 3") 04/10/2020 11:44 AM CDT Body Mass Index 29.94 04/10/2020 11:44 AM CDT Plan of Treatment Date Type Specialty Care Team Description 05/23/2020 Office Visit [place] [address] [place], [place] [address] [phone] Health Maintenance Due Date Last Done Comments SHINGLES VACCINES (#1) 2001 65+ PNEUMOCOCCAL VACCINE (2 of 2 - 07/12/2017 07/12/2016 PPSV23) INFLUENZA VACCINE 03/11/2020 06/10/2019, 08/26/2018, 06/09/2017, Additional history exists BREAST CANCER SCREENING 09/07/2020 09/07/2018, 09/04/2017, 06/19/2016 COLONOSCOPY SCREENING 01/10/2028 01/09/2018 Implants Implanted Type Area Laser Beam Machine Operator Device Shelf Model / Identifier Expiration Serial / Date Lot Screw Bone Micr 2.5x22mm Acutrak 2 - [id number] Bone Screw A [employer] AT2 C22 / Implanted: Qty: 1 on 12/22/2017 by Lazaro Damian MD at [facility] / Palm Sut Swivelock Biocmpst C Vntd 4.75x19.1mm - [id number] Ort hopedic Left: [employer] 10/08/2018 AR [id number] / Implanted: 01/10/2017 at [facility] (Quantity not on file) Russell burrell Shoulder / Implants [id number] Palm Sut Corkscrew Ft Biocmpst W/ Two Sz 2 Fibrwr 4. 5x15mm - [id number] Orthopedic Left: [employer] 09/10/2018 AR [id number] 45 / Implanted: 01/10/2017 at [facility] (Quantity not on file) Russell burrell Shoulder / Implants [id number] Palm Sut Corkscrew Ft Biocmpst W/ Two Sz 2 Fibrwr 4. 5x15mm - [id number] Orthopedic Left: [employer] 09/10/2018 AR [id number] 45 / Implanted: 01/10/2017 at [facility] (Quantity not on file) Russell burrell Shoulder / Implants [id number] Palm Sut Corkscrew Ft Biocmpst W/ Two Sz 2 Fibrwr 4. 5x15mm - [id number] Orthopedic Left: [employer] 09/10/2018 AR [id number] 45 / Implanted: 01/10/2017 at [facility] (Quantity not on file) Russell burrell Shoulder / Implants [id number] Palm Sut Swivelock Biocmpst C Vntd 4.75x19.1mm - [id number] Ort hopedic Left: [employer] 10/08/2018 AR [id number] / Implanted: 01/10/2017 at [facility] (Quantity not on file) Russell burrell Shoulder / Implants [id number] Screw Bone Micr 2.5x24mm Acutrak 2 - [id number] Orthopedic [employer] AT2 C24 / Implanted: Qty: 2 on 12/22/2017 by Lazaro Damian MD at [facility] Trauma / Implants Guide Wire .035 - [id number] Surgical [employer] 80 1524 / Implanted: Qty: 1 on 12/22/2017 by Lazaro Damian MD at [facility] Implants; / Expanders; NA Extenders; Surgical Wires Guide Wire .035 - [id number] Surgical [employer] 80 1524 / Implanted: Qty: 1 on 12/22/2017 by Lazaro Damian MD at [facility] Implants; / Expanders; NA Extenders; Surgical Wires Procedures Procedure Name Priority Date/Time Associated Comments Diagnosis XR LUMBAR SPINE 2 OR 3 Routine 12/06/2019 1:50 Chronic bilate ral Results for this VW PM CDT low back pain procedure are in without sciatica the results section. XR HIP 2-3 VIEWS RIGHT Routine 12/06/2019 1:47 Pain of right hip Results for this PM CDT joint procedure are i n the results section. XR SHOULDER 2+ VW LEFT STAT 09/13/2019 12:26 R esults for this PM [employer]YL TOP INSTALLER procedure are i n the results section. XR CHEST 2 VW STAT 09/13/2019 12:26 Results fo r this PM [employer] VINYL TOP INSTALLER procedure are i n the results section. MANUAL DIFFERENTIAL STAT 09/13/2019 12:06 Resu lts for this PM [employer]INYL TOP INSTALLER procedure are i n the results section. ESTIMATED GFR STAT 09/13/2019 12:06 Results fo r this PM AUTO VINYL TOP INSTALLER procedure are i n the results section. TROPONIN, I-STAT STAT 09/13/2019 12:06 Results for this PM AUT[employer] VINYL TOP INSTALLER procedure are i n the results section. COMPREHENSIVE STAT 09/13/2019 12:06 Results fo r this METABOLIC PANEL PM AUTO VINYL TOP INSTALLER procedure ar e in the results section. CBC WITH PLATELET AND STAT 09/13/2019 12:06 Re sults for this DIFFERENTIAL PM AUT[employer] VINYL TOP INSTALLER procedure are i n the results section. ECG 12-LEAD STAT 09/13/2019 11:47 Results for this AM AUTO VINYL TOP INSTALLER procedure are i n the results section. after 05/17/2019 Results XR Lumbar Spine 2 Or 3 Vw (12/06/2019 1:50 PM CDT) Specimen Narrative Performed At EXAMINATION: XR LUMBAR SPINE 2 OR 3 VW [facility] CLINICAL HISTORY: M54.5 Low back pain, G89.29 Other chronic pain, recent fall COMPARISON: July 20, 2018 IMPRESSION: There is stable degenerative disc space narrowing at L 4-5 and L3-4 with grade 1 degenerative spondylolisthesis a t both levels. There is minimal degenerative anterolisthesis at L2-3 which has evolved since the previous examination. There is no definite spondylolysis bone defect. There is no compression fracture. [facility]-[id number] Procedure Note Interface, Radiology Results Incoming - 12/06/2019 1:55 PM CDT EXAMINATION: XR LUMBAR SPINE 2 OR 3 VW CLINICAL HISTORY: M54.5 Low back pain, G89.29 Other chronic pain, recent fall COMPARISON: July 20, 2018 IMPRESSION: There is stable degenerative disc space narrowing at L4-5 and L3-4 with grade 1 degenerative spondylolisthesis at both levels. There is minimal degenerative anterolist hesis at L2-3 which has evolved since the previous examination. There is no definite spondylolysis bone defect. There is no compression fracture. [facility]-[id number] Performing Organization Address [facility] Phon e Number [facility] [address] [place] [address] XR Hip 2-3 View Right (12/06/2019 1:47 PM CDT) Specimen Narrative Performed At EXAMINATION: XR HIP 2-3 VIEWS RIGHT [facility] CLINICAL HISTORY: M25.551 Pain in righ t hip, recent fall hip pain COMPARISON: None available. IMPRESSION: 1. Approximately age and gender appropriate mineraliza tion of the osseous structures. 2. Normal alignment of the right hip without acute fra cture or dislocation. Mild bilateral hip osteoart hritis. 3. No focal soft tissue abnormality. [facility]-[id number] Procedure Note Interface, Radiology Results - 12/06/2019 2:14 PM CDT EXAMINATION: XR HIP 2-3 VIEWS RIGHT CLINICAL HISTORY: M25.551 Pain in right hip, recent fall hip pain COMPARISON: None available. IMPRESSION: 1. Approximately age and gender appropri ate mineralization of the osseous structures. 2. Normal alignment of the right hip wit hout acute fracture or dislocation. Mild bilateral hip osteoarthritis. 3. No focal soft tissue abnormality. [facility]-[id number] Performing Organization Address [facility] Phon e Number [facility] [address] [place] [address] XR Shoulder 2+ Vw Left (09/13/2019 12:26 PM AUTO VINYL TOP INSTALLER) Specimen Narrative Performed At XR SHOULDER 2 VW LEFT [facility] CLINICAL INDICATION: pain no trauma COMPARISON: None. IMPRESSION: Bones are demineralized without fracture or significan t degenerative changes. There are cystic resorptive changes in the po sterolateral humerus consistent with rotator cuff disease. Mild deg enerative changes of the acromioclavicular joint are prese nt. The clavicle, scapula, and left ribs are intact. There are metallic sutures partially visualized over the cervicothoracic junction unchanged from 12/12/2016. *[id number] Procedure Note Interface, Radiology Results Incoming - 09/13/2019 12:38 PM AUTO VINYL TOP INSTALLER XR SHOULDER 2 VW LEFT CLINICAL INDICATION: pain no trauma COMPARISON: None. IMPRESSION: Bones are demineralized without fracture or significant degenerative changes. There are cystic resorptive changes in the posterolateral humerus consistent with rotator cuff disease. Mild degenerative changes of the acromioclavicular joint are present. The clavicle, scapula, and left ribs are intact. There are metallic sutures partially visualized over the cervicothoracic junction unchanged from 12/12/2016. *[id number] Performing Organization Address City/[facility] Code Phon e Number [facility] [address] [place] [address] XR Chest 2 Vw (09/13/2019 12:26 PM AUTO VINYL TOP INSTALLER) Specimen Narrative Performed At EXAMINATION: XR CHEST 2 VW [facility] CLINICAL HISTORY: pain no trauma COMPARISON: 01/10/2017 IMPRESSION: No active disease in the chest. Lungs are clear. Cardiomediastinal silhouette is within n ormal limits. No effusion or pneumothorax noted. Visualized osseous structures are intact with postsurg ical changes in the lower thoracic spine. [facility]-[id number] Procedure Note Interface, Radiology Results Incoming - 09/13/2019 12:31 PM AUTO VINYL TOP INSTALLER EXAMINATION: XR CHEST 2 VW CLINICAL HISTORY: pain no trauma COMPARISON: 01/10/2017 IMPRESSION: No active disease in the chest. Lungs are clear. Cardiomediastinal silhouette is within n ormal limits. No effusion or pneumothorax noted. Visualized osseous structures are intact with postsurgical changes in the lower thoracic spine. [id number] Performing Organization Address City/[facility]/ZIP Code Phon e Number [facility] [address] [place] [address] Estimated GFR (09/13/2019 12:06 PM AUTO VINYL TOP INSTALLER) Estimated GFR 76 mL/min/1.73 [facility] Comment: m2 [place] Catergory Units Interpretation [facility] G1 >=90 Normal or high CENTER G2 60-89 Mildly decreased G3a 45-59 Mildly to moderately decreas ed G3b 30-44 Moderately to severely decre ased G4 15-29 Severely decreased G5 <15 Kidney failure The eGFR was calculated using the Chronic Kidney Disea se Epidemiology Collaboration (CKD-EPI) equation. Interpretation is based on recommendations of the National Kidney Foundation-Kidney Disease Outcomes Javier lity Initiative (NKF-KDOQI) published in 2014. Specimen Plasma specimen Performing Organization Address City/[facility] Code Phon e Number DEPARTMENT OF PATHOLOGY AND [id number] [place] [address] [phone] [id number] EMERGENCY [facility] CENTER Troponin, I-Stat (09/13/2019 12:06 PM AUTO VINYL TOP INSTALLER) Troponin, I-Stat 0.00 0.00 - 0.[address] [facility] Comment: ng/mL [place] 0.09 - 1.49 ng/ml May indicate increa sed risk of acute EMERGENCY CARE coronary syndrome. CENTER >=1.5 ng/ml Consistent with acute myocardial infarction. The diagnostic value of a single normal or non-diagnos tic result is questionable. Serial samples at 2-6 hour i ntervals are required to rule out acute myocardial injury. Specimen Plasma specimen Performing Organization Address City/[facility] Phon e Number DEPARTMENT OF PATHOLOGY AND [id number] [place] [address] [phone] [id number] EMERGENCY [facility] Manual differential (09/13/2019 12:06 PM AUTO VINYL TOP INSTALLER) Manual differential PERFORMED [facility] Neutrophils 67.0 39.0 - 69.0 % [facility] Lymphocytes 29.0 25.0 - 45.0 % [facility] Monocytes 4.0 0.0 - 10.0 % [facility] Eosinophils 0.0 0.0 - 5.0 % [facility] Basophils 0.0 0.0 - 1.0 % [facility] Metamyelocytes 0 % [facility] Promyelocytes 0 % [facility] Platelet slide review Anton adequate [facility] Specimen Performing Organization Address City/[facility] Phon e Number [facility] DEPARTMENT OF PATHOLOGY AND [address] [place], [place] [address] GENOMIC MEDICINE [facility] [address] [place] [address] [facility] [id number] [place] [id number] [place] [address] CBC with platelet and differential (09/13/2019 12:06 PM AUTO VINYL TOP INSTALLER) Pathologist Sig nature WBC 4.93 4.50 - 11.00 k/uL [facility] RBC 3.64 (L) 4.20 - 5.50 m/uL [facility] HGB 12.2 12.0 - 16.0 g/dL [facility] HCT 36.3 (L) 37.0 - 47.0 % [facility] MCV 99.7 82.0 - 100.0 fL [facility] MCH 33.5 27.0 - 34.0 pg [facility] MCHC 33.6 31.0 - 37.0 g/dL [facility] RDW - SD 43.2 37.0 - 55.0 fL [facility] MPV 11.0 8.8 - 13.2 fL [facility] Platelet count 208 150 - 400 k/uL [facility] Neutrophils 67.0 39.0 - 69.0 % [facility] [facility] Lymphocytes 29.0 25.0 - 45.0 % [facility] Monocytes 4.0 0.0 - 10.0 % [facility] Eosinophils 0.0 0.0 - 5.0 % [facility] Basophils 0.0 0.0 - 1.0 % [facility] Specimen Blood Performing Organization Address City/State/ZIP Code Phon e Number DEPARTMENT OF PATHOLOGY AND [address] [place], [place] [address] [facility] [id number] [place] [phone] [place] [address] Comprehensive metabolic panel (09/13/2019 12:06 PM AUTO VINYL TOP INSTALLER) Sodium 141 128 - 145 mEq/L [facility] Potassium 4.2 3.6 - 5.1 mEq/L [facility] CO2 30 18 - 33 mEq/L [facility] Chloride 105 98 - 108 mEq/L [facility] Glucose 105 73 - 118 mg/dL [facility] Calcium 9.1 8.0 - 10.[address] [facility] mg/dL [facility] BUN 9 7 - 22 mg/dL [facility] Creatinine 0.8 0.5 - 0.9 mg/dL [facility] Alkaline phosphatase 90 42 - 141 U/L [facility] ALT 19 10 - 47 U/L [facility] AST 27 11 - 38 U/L [facility] Total bilirubin 0.6 0.2 - 1.6 mg/dL [facility] Albumin 4.0 3.3 - 5.5 g/dL [facility] Protein 6.4 6.4 - 8.1 g/dL [facility] Anion gap 6@ANIO (L) 7 - 15 mEq/L [facility] A/G ratio 1.7 0.7 - 3.8 [facility] Specimen Plasma specimen Performing Organization Address City/State/[facility] Code Phon e Number DEPARTMENT OF PATHOLOGY AND [address] [place] [phone] [facility], [address] [address] [facility] ECG 12 lead (09/13/2019 11:47 AM AUTO VINYL TOP INSTALLER) Pathologist Sig nature Ventricular rate 77 [facility] MUSE Atrial rate 77 [facility] M[facility] FL interval 154 [facility] QRSD interval 78 [facility] M[facility] QT interval 390 [facility] QTC interval 441 [facility] M[facility] P axis 1 34 HM MUSE QRS axis 1 21 [facility] MUSE T wave axis 80 [facility] M[facility] EKG impression Normal sinus rhythm-Nonspeci fic T wave abnormality-Abnormal ECG- In automated comparison with ECG of 24-NOV-2017 12:20,-Nonspecific T wave abnormality has replaced inverted T waves in Inferior leads-Elec [facility] MUSE tronically Signed By Margarita VELASQUEZ, Mil ([id number]) on 09/13/2019 5:08:16 PM Specimen Narrative Performed At This result has an attachment that is no t available. Performing Organization Address City/State/ZIP Code Phon e Number [facility] M[facility] [address] [place] [address] after 05/17/2019 Advance Directives For more information, please contact: [phone] Type Date Recorded Patient Bioinformatics Team Member Explanati on Advance Directives, Living Will and Medical Power of Security Operations Analyst
--- OUTSIDE RECORDS SUMMARY | 2020-05-18 08:46 | XMS REPORT | Continuity of Care Document ---
:1950 Author Organization [facility] t Address [address] [place] [address] Care Team Providers Name Role Phone John VELASQUEZ Primary Care Physician John VELASQUEZ Attending Clinician Selvin Valle MD Attending Clinician Henry LOMAS Attending Clinician Unavailable Conner VELASQUEZ, H Attending Clinician Luba ROSS Attending Clinician Unavailable Payers Payer Name Policy Type Policy Effective Expiration Source Number Date Date TEXANPLUSTEXANPLUS [id number] 2015 Apolinar cherry [id number] 2015- 00:00:00 M ethodist esentHMO Problems Condition Condition Condition Status Onset Resolution Last Treating Co mments Source Name Details Category Date Date Treatment Clinician Date History of History of Disease Active [place] wrist wrist 4-18 [facility] fracture fracture 00:00: st 00 Vitamin D Vitamin D Disease Active 2019- Mary ston deficiency deficiency 1-16 Me thodi 00:00: st 00 Osteoarthr Osteoarthr Disease Active 2018-0 [place] itis of itis of 6-14 [facility] finger of finger of 00:00: st right hand right hand 00 Orthopedic Orthopedic Disease Active 2018- [place] aftercare aftercare 6-14 Meth dc 00:00: st 00 Osteopenia Osteopenia Disease Active 2018- [place] 2-01 Methodi 00:00: st 00 Bilateral Bilateral Disease Active 2016 Mary ston low back low back 1-20 Method i pain with pain with 00:00: st left-sided left-sided 00 sciatica sciatica Dermatophy Dermatophy Disease Active [place] tosis, tosis, 8-14 [facility] nail nail 00:00: st 00 Complete Complete Disease Active [place] tear of tear of 6-15 [facility] left left 00:00: st rotator rotator 00 cuff cuff Degenerati Degenerati Disease Active [place] ve tear of ve tear of 5-17 [facility] glenoid glenoid 00:00: st labrum of labrum of 00 left left shoulder shoulder Incomplete Incomplete Disease Active [place] tear of tear of 5-17 [facility] left left 00:00: st rotator rotator 00 cuff cuff Acute pain Acute pain Disease Active [place] of left of left 5-04 [facility] shoulder shoulder 00:00: st 00 Left Left Disease Active [place] shoulder shoulder 4-26 Method i tendonitis tendonitis 00:00: st 00 Strain of Strain of Disease Active [facility] st[facility] left left 4-26 [facility] biceps biceps 00:00: st muscle muscle 00 Arthritis Arthritis Disease Active [facility] of right of right 3-01 Method i hand hand 00:00: st 00 Postmenopa Postmenopa Disease Active [place] usal usal 3-01 [facility] atrophic atrophic 00:00: st vaginitis vaginitis 00 Bladder Bladder Disease Active 2015-08 [place] prolapse, prolapse, 2-02 Meth dc female, female, 00:00: st acquired acquired 00 Hyperlipid Hyperlipid Disease Active 2015-08 [place] emia LDL emia LDL 09-12 Method i goal <130 goal <130 00:00: st 00 Insomnia Insomnia Disease Active 2015-08 [place] 09-12 Method[facility] 00:00: st 00 Immunizati Immunizati Disease Active 2015-08 [place] on due on due 09-12 Methodi 00:00: st 00 Shoulder, Shoulder, Disease Active [facility] capsulitis capsulitis 8-30 [facility] , adhesive , adhesive 00:00: st 00 Allergies, Adverse Reactions, Alerts Allergy Allergy Status Severity Reaction(s) Onset Inactive Treating Comm ents Source Name Type Date Date Clinician Aspirin Propensi Active [place] ty to 620 [facility] adverse 00:00: st reaction 00 s to drug Prochlor Propensi Active [place] perazine ty to 01-28 [facility] adverse 00:00: st reaction 00 s to drug Cycloben Propensi Active [place] zaprine ty to 20 [facility] adverse 00:00: st reaction 00 s to drug Loperami Propensi Active [place] de ty to 01-28 [facility] adverse 00:00: st reaction 00 s to drug Family History Family Member Diagnosis Comments Start Date Stop Date Source Natural mother Kidney failure [place] Yarsanism Natural sister Cancer [place] Me thodist Natural sister Ovarian cancer [place] Yars[facility] Social History Social Habit Start Date Stop Date Quantity Comments Source Sex Assigned At [facility] ethodist Exposure to Not sure [place] Metho dist SARS-CoV-2 (event) Tobacco use and 2020-01-19 2020-01-19 Never used [facility] ethodist exposure 00:00:00 00:00:00 Alcohol intake 2020-01-19 2020-01-19 Current [facility] thodist 00:00:00 00:00:00 non-drinker of alcohol (finding) Smoking Status Start Date Stop Date Source Never smoker [place] Methodis t Medications Ordered Filled Start Stop Current Ordering Indication Dosage Frequency Signature Comments Components Source Medication Medication Date Date Medication? Clinician (SIG) Name Name dexamethaso 2019- Yes Strain [facility]10 right [facility] (DECADRON) 12:15: trapezius st injection 00 muscle, 10 mg initial encounter methylPREDN 2019- No Strain of 40mg [place] ISolone 04-10 right [facility] acetate 12:15: 12:[address] (DEPO-MEDRO 00 :00 muscle, L) initial injection encounter 40 mg meloxicam 2019-2019- No 15mg QD Take 1 [place] (MOBIC) 04-10 tablet (15 Me thodi mg tablet 00:00: 23:59 mg total) st 00 :00 by mouth daily for 30 days. carisoprodo 2019-0 2020- No 350mg Q.5D Take 1 [place] (Soma) 04-10 tablet Method[facility] 350 MG 00:00: 23:59 ([address] tablet 00 :00 total) by mouth 2 (two) times a day as needed for muscle spasms for up to 15 days. zolpidem 2020-0 Yes 5mg QD Take 5 mg [place] (AMBIEN) 5 - by mouth Metho di MG tablet 14:28: nightly as st 01 needed for sleep. diazePAM 2019-0 2020- No 5mg Q6H Take 5 mg [facility] ston (VALIUM) 5 02-28 07-21 by mouth Meth dc MG tablet 14:28: 00:[address] 01 :00 (six) hours as needed for anxiety. magnesium 2020-0 Yes Take by [place] 200 mg 02-28 mouth. [facility] tablet 14:27: st 25 gabapentin 2020-0 Yes 300mg Q.5D Take 1 [place] (NEURONTIN) 02-28 capsule Metho di 300 mg 00:00: ([address] capsule 00 total) by mouth 2 (two) times a day. carisoprodo 2020-0 2020- No 350mg Q.[id number] Take 1 Mike L (Soma) 02-28 08-05 [id number] tablet Me thodi 350 MG 00:00: 23:59 3D ([address] tablet 00 :00 total) by mouth 3 (three) times a day as needed for muscle spasms (can cause drowsiness ) for up to 15 days. zolpidem 2020-0 2020- No 5mg QD Take 5 mg [facility] (AMBIEN) 5 01-04 05-27 by mouth Meth dc MG tablet 11:04: 00:00 nightly as s t 43 :00 needed for sleep. zolpidem 2019-0 2020- No 5mg QD Take 1 [place] (AMBIEN) 5 01-04 06-26 tablet (5 Met hodi MG tablet 00:00: 23:59 mg total) st 00 :00 by mouth nightly as needed for sleep for up to 30 days. omeprazole 2019-0 Yes TAKE ONE [facility] ston (PriLOSEC) - (1) Methodi 20 MG 00:00: CAPSULE(S) st capsule 00 BY MOUTH ONCE A DAY. meloxicam 2019-0 2020- No 7.5mg QD Take 1 [place] (MOBIC) 7.5 12-01- tablet Metho di mg tablet 00:00: 00:00 (7.[address] 00 :00 total) by mouth daily. carisoprodo 2019- 2020- No 350mg QD Take 1 [place] (SOMA) 10-01 tablet Methodi 350 MG 00:00: 23:59 ([address] tablet 00 :00 total) by mouth nightly as needed for muscle spasms for up to 30 days. meloxicam 2019- No 15mg Q24H Take 1 [place] (MOBIC) 15 10-01 tablet (15 Me thodi mg tablet 00:00: 23:59 mg total) st 00 :00 by mouth daily as needed for moderate pain for up to 30 days. cholecalcif 2019-2019- No 1000U QD Take 1,000 Mike keith, 09-24 Units by [facility] vitamin D3, 09:58: 00:[address] (VITAMIN 45 :00 daily. D3) 1,000 unit tablet carisoprodo 2019- No 350mg QD Take 1 [place] (SOMA) 09-24 tablet Method[facility] 350 MG 00:00: 00:00 ([address] tablet 00 :00 total) by mouth nightly as needed for muscle spasms for up to 30 days. acetaminoph 2019-2019- No 500mg Q6H Take 1 [place] en (TYLENOL 09-1308 tablet Metho di EXTRA 00:00: 23:59 ([address] STRENGTH) 00 :00 total) by 500 MG mouth tablet every 6 (six) hours as needed for mild pain or moderate pain for up to 5 days. diazePAM 2019- No 5mg Q6H Take 1 [place] (VALIUM) 5 09-1307 tablet (5 Met hodi MG tablet 00:00: 23:59 mg total) st 00 :00 by mouth every 6 (six) hours as needed for muscle spasms for up to 4 days. amoxicillin 2018-08- No 1{tbl} Q.5D Take 1 [place] -pot 10-04 tablet by Method[facility] clavulanate 00:00: 23:[address] (AUGMENTIN) 00 :00 (two) 875-125 mg times a per tablet day for 10 days. meloxicam 2018-08- No 15mg Q24H Take 1 [place] (MOBIC) 15 1-21 12-21 tablet (15 Me thodi mg tablet 00:00: 23:59 mg total) st 00 :00 by mouth daily as needed for moderate pain for up to 30 days. traMADol 2018-08- No acute pain 50mg Q12H Take 1 Mike (ULTRAM) 50 -07-06 tablet (50 M ethodi mg tablet 00:00: 23:59 mg total) st 00 :00 by mouth every 12 (twelve) hours as needed for moderate pain for up to 5 days .Acute Pain. zolpidem 2018-08- No 5mg QD Take 1 [place] (AMBIEN) 5 - tablet (5 Met hodi MG tablet 00:00: 23:59 mg total) st 00 :00 by mouth nightly as needed for sleep for up to 30 days. meloxicam 2018-08 No 15mg Q24H Take 1 [place] (MOBIC) 15 -- tablet (15 Me th[facility] mg tablet 00:00: 00:00 mg total) st 00 :00 by mouth daily as needed for moderate pain for up to 30 days. omeprazole 2019- No TAKE ONE Leonardo bedoya (PriLOSEC) 03-30 0526 (1) [facility]i 20 MG 00:00: 00:00 CAPSULE(S) st capsule 00 :00 BY MOUTH ONCE A DAY. cetirizine 2019- No 10mg QD Take 1 [place] (ZyrTEC) 10 03-30 02-14 tablet (10 M ethodi MG tablet 00:00: 00:00 mg total) st 00 :00 by mouth daily. Immunizations Ordered Immunization Filled Immunization Date Status Commen ts Source Name Name FLUZONE HIGH-DOSE PF 2019-06-10 Completed [place] 00:00:00 Dl Bainap 2019-01-26 Completed [place] 00:00:00 Yarsanism FLUZONE HIGH-DOSE PF 2018-08-26 Completed [place] 00:00:00 Yarsanism Tdap 2017-06-19 Completed [place] 00:00:00 Yarsanism FLUZONE HIGH-DOSE PF 2017-06-09 Completed [place] 00:00:00 Yarsanism FLUZONE QUAD 2016-07-12 Completed [place] 00:00:00 Yarsanism Pneumococcal 2016-07-12 Completed Rashid Conjugate 13-Valent 00:00:00 Metho dist Influenza Trivalent 2015-04-25 Completed [place] on 00:00:00 Yarsanism Vital Signs Vital Name Observation Time Observation Value Comments Source Systolic blood 2020-04-10 11:44:00 145 mm[Hg] Apolinar n Yarsanism pressure Diastolic blood 2020-04-10 11:44:00 76 mm[Hg] [place] Yarsanism pressure Heart rate 2020-04-10 11:44:00 62 /min Rashid Lizama Body temperature 2020-04-10 11:44:00 36.78 Daphne Ch[place] ton Yarsanism Body height 2020-04-10 11:44:00 160 cm Rashid Lizama Body weight 2020-04-10 11:44:00 76.658 kg Rashid Lizama BMI 2020-04-10 11:44:00 29.94 kg/m2 Rashid Lizama Oxygen saturation in 2020-04-10 11:44:00 99 /min Rashid Lizama Arterial blood by Pulse oximetry Respiratory rate 2019-09-13 13:24:03 18 /min Chaya jackman Yarsanism Procedures Procedure Date / Time Performed Performing Clinician Sourc e XR LUMBAR SPINE 2 OR 3 VW 2019-12-06 13:50:00 Audie Valle Yarsanism XR HIP 2-3 VIEWS RIGHT 2019-12-06 13:47:37 Audie Valle Yarsanism XR SHOULDER 2+ VW LEFT 2019-09-13 12:26:45 Bridgett House Yarsanism XR CHEST 2 VW 2019-09-13 12:26:32 Bridgett House Met hodist CBC WITH PLATELET AND 2019-09-13 12:06:00 Bridgett House on Yarsanism DIFFERENTIAL COMPREHENSIVE METABOLIC 2019-09-13 12:06:00 Bridgett House PANEL TROPONIN, I-STAT 2019-09-13 12:06:00 Bridgett House Me thodist ESTIMATED GFR 2019-09-13 12:06:00 Bridgett House Met hodist MANUAL DIFFERENTIAL 2019-09-13 12:06:00 Bridgett House ECG 12-LEAD 2019-09-13 11:47:56 Bridgett House Conchis Mike Met hodist Plan of Care Planned Activity Planned Date Details Comments Source Future Scheduled 2028-01-10 COLONOSCOPY SCREENING Leonardo bedoya Yarsanism Test 00:00:00 [code = COLONOSCOPY SCREENING] Future Scheduled 2020-09-07 BREAST CANCER [facility] thodist Test 00:00:00 SCREENING [code = BREAST CANCER SCREENING] Future Scheduled 2020-03-11 INFLUENZA VACCINE [place] Y[facility]ism Test 00:00:00 [code = INFLUENZA VACCINE] Future Scheduled 2017-07-12 65+ PNEUMOCOCCAL [place] Yarsanism Test 00:00:00 VACCINE (2 of 2 - PPSV23) [code = 65+ PNEUMOCOCCAL VACCINE (2 of 2 - PPSV23)] Future Scheduled 2001 SHINGLES VACCINES (#1) [place] Yarsanism Test 00:00:00 [code = SHINGLES VACCINES (#1)] Encounters Start End Encounter Admission Attending Care Care Encounter Source Date/Time Date/Time Type Type Clinicians Facility Department ID 2020-04-10 2020-04-10 Outpatient CHITTIMIRED [facility] [id number] [place] 00:00:00 00:00:00 DY, 300 Method i SASIKALA 2020-02-29 2020-02-29 Outpatient CHITTIMIRED [facility] [id number] [place] 00:00:00 00:00:00 DY, [address] 2020-01-19 2020-01-19 Outpatient CHITTIMIRED [facility] [id number] [place] 00:00:00 00:00:00 DY, [address] 2020-01-05 2020-01-05 Outpatient CHITTIMIRED [facility] [id number] [place] 00:00:00 00:00:00 DY, [address] 2019-12-21 2019-12-21 Outpatient NISREEN, [facility] [id number] [place] 00:00:00 00:00:00 AUDIE [address] 2019-12-08 2019-12-10 Outpatient NISREEN, [facility] [id number] [place] 00:00:00 00:00:00 AUDIE [address] 2019-12-06 2019-12-06 [facility] [id number] [place] 00:00:00 00:00:00 AUDIE [address] 2019-12-06 2019-12-06 Outpatient NISREEN, [facility] [id number] [place] 00:00:00 00:00:00 AUDIE [address] 2019-12-02 2019-12-02 Outpatient NISREEN, [facility] [id number] [place] 00:00:00 00:00:00 AUDIE [address] 2019-09-13 2019-09-13 Emergency CONNER, [facility] [id number] [place] 00:00:00 00:00:00 BRIDGETT [address] Results Test Description Test Time Test Comments Results Result Sour e Comments XR Hip 2-3 View 2019-11-11 Hm Interface, [place] Right 7 Radiology Results Methodi 14:11:34 - 12/06/2019 2:14 PM CDTEXAMINATION: XR HIP 2-3 VIEWS RIGHTCLINICAL HISTORY: M25.551 Pain in right hip, recent fall hip painCOMPARISON: None available.IMPRESSION: 1. Approximately age and gender appropriate mineralization of the osseous structures. 2. Normal alignment of the right hip without acute fracture or dislocation. Mild bilateral hip osteoarthritis.3. No focal soft tissue abnormality. [facility]-[id number] XR Lumbar Spine 2019-11-11 Hm Interface, [place]ay[place] n 2 Or 3 Vw 7 Radiology Results Methodi 13:52:21 - 12/06/2019 1:55 PM CDTEXAMINATION: XR LUMBAR SPINE 2 OR 3 VWCLINICAL HISTORY: M54.5 Low back pain, G89.29 Other chronic pain, recent fallCOMPARISON: July 20, 2018IMPRESSION: There is stable degenerative disc space narrowing at L4-5 and L3-4 with grade 1 degenerative spondylolisthesis at both levels.There is minimal degenerative anterolisthesis at L2-3 which has evolved since the previous examination.There is no definite spondylolysis bone defect.There is no compression fracture. [facility]-[id number] CBC with platelet and differential 2019-09-14 06:12:51 Test Item Value Reference Range Interpretation Comme nts WBC (test code = 34585-3) 4.93 4.50- 11.00 k/uL RBC (test code = 56819-3) 3.64 m/uL 4.2-5.5 L HGB (test code = 718-7) 12.2 g/dL 12-16 HCT (test code = 4544-3) 36.3 % 37-47 L MCV (test code = 787-2) 99.7 fL 82-100 MCH (test code = 785-6) 33.5 pg 27-34 MCHC (test code = 786-4) 33.6 g/dL 31-37 RDW - SD (test code = 72421-4) 43.2 fL 37-55 MPV (test code = 10617-0) 11.0 fL 8.8-13.2 Platelet count (test code = 20559-0) 208 150- 400 k/uL Neutrophils (test code = 70635-7) 67.0 % 39-69 Lymphocytes (test code = 86471-6) 29.0 % 25-45 Monocytes (test code = 36480-0) 4.0 % 0-10 Eosinophils (test code = 78117-7) 0.0 % 0-5 Basophils (test code = 41056-2) 0.0 % 0-1 Lab Interpretation (test code = 01247-5) Abnormal Mike MethodistECG 12 [id number] 17:08:17 Test Item Value Reference Range Interpretation Comments Ventricular rate (test 77 code = 253) Atrial rate (test code 77 = 255) WA interval (test code 154 = 266) QRSD interval (test 78 code = 260) QT interval (test code 390 = 264) QTC interval (test code 441 = 265) P axis 1 (test code = 34 267) QRS axis 1 (test code = 21 268) T wave axis (test code 80 = 270) EKG impression (test Normal sinus code = 273) rhythm-Nonspecific T wave abnormality-Abnormal ECG-In automated comparison with ECG of 24-NOV-2017 12:20,-Nonspecific T wave abnormality has replaced inverted T waves in Inferior leads- [place] MethodistManual [id number] 15:02:25 Test Item Value Reference Range Interpretation Comments Manual differential (test code = PERFORMED 73341-4) Neutrophils (test code = 67.0 % 39-69 68477-3) Lymphocytes (test code = 29.0 % 25-45 88614-0) Monocytes (test code = 04409-8) 4.0 % 0-10 Eosinophils (test code = 0.0 % 0-5 65510-4) Basophils (test code = 26448-5) 0.0 % 0-1 Metamyelocytes (test code = 0 % 740-1) Promyelocytes (test code = 0 % 783-1) Platelet slide review (test code Anton adequate = 37716-3) Mike MethodistComprehensive metabolic [id number] 12:59:44 Test Item Value Reference Range Interpretation Comments Sodium (test code = 2951-2) 141 128- 145 mEq/L Potassium (test code = 2823-3) 4.2 3.6- 5.1 mEq/L CO2 (test code = 8-9) 30 18- 33 mEq/L Chloride (test code = 2075-0) 105 98- 108 mEq/L Glucose (test code = 2345-7) 105 mg/dL 73-118 Calcium (test code = 08824-4) 9.1 mg/dL 8-10.3 BUN (test code = 3094-0) 9 mg/dL 7-22 Creatinine (test code = 2160-0) 0.8 mg/dL 0.5-0.9 Alkaline phosphatase (test code = 90 U/L 42-141 68-6) ALT (test code = 1742-6) 19 U/L 10-47 AST (test code = 1920-8) 27 U/L 11-38 Total bilirubin (test code = 0.6 mg/dL 0.2-1.6 1974-2) Albumin (test code = 1751-7) 4.0 g/dL 3.3-5.5 Protein (test code = 2885-2) 6.4 g/dL 6.4-8.1 Anion gap (test code = 91958-2) 6@ANIO 7- 15 mEq/L L A/G ratio (test code = 1759-0) 1.7 0.7-3.8 Lab Interpretation (test code = Abnormal 90534-2) Rashid MethodistEstimated [id number] 12:59:44 Test Item Value Reference Range Interpretation Comments Estimated GFR (test 76 mL/min/1.73 m2 Caterg ory Units code = 5488) InterpretationG 1 >=90 Normal or highG2 60-89 Mildly [id number] 45-59 Mildly to mode rately prrgqtsqpV5c 30-44 Moderately to severely decreasedG4 15-29 Severely decre asedG5 <15 Kidn ey failureThe eGFR was calculated ruthie g the Chronic Kidney Disease Epidemiology Co llaboration (CKD-EPI) equat ion. Interpretation is based on recommendations of the National Kidney Foundation-Kidn ey Disease Outcomes Qualit y Initiative (NKF-KDOQI) pub lished in 2014. Rashid LizamaXR Shoulder 2+ Vw [id number] 12:35:31Hm Interface, Radiology Results Incoming - 09/13/2019 12:38 PM CSTXR SHOULDER 2 VW LEFTCLINICAL INDICATION: pain no traumaCOMPARISON: None.IMPRESSION:Bones are demineralized without fracture or significant degenerative changes. There are cystic resorptive changes in the posterolateral humerus consistent with rotator cuff disease. Mild degenerative changes of the acromioclavicular joint are present. The clavicle, scapula, and left ribs are intact. There are metallic sutures partially visualized over the cervicothoracic junction unchanged from 12/12/2016.*[facility]-[id number] MethodistXR Chest 2 [id number] 12:28:48Hm Interface, Radiology Results Incoming - 09/13/2019 12:31 PM CSTEXAMINATION: XR CHEST 2 VWCLINICAL HISTORY: pain no traumaCOMPARISON: 01/10/2017 IMPRESSION:No active disease in the chest.Lungs are clear. Cardiomediastinal silhouette is within normal limits.No effusion or pneumothorax noted.Visualized osseous structures are intact with postsurgical changes in the lower thoracic spine.[facility]-[id number] MethodistTroponin, [id number] 12:19:01 Test Item Value Reference Range Interpretation Comments Troponin, I-Stat 0.00 ng/mL 0-0.08 0.09 - 1.49 ng/ml (test code = 2359) May indic ate increased risk of acute coronary syndro me. >=1.5 ng/ml Consistent with acute myocardial infar ction. The diagnostic valu e of a single normal o r non-diagnostic result is questionable. Serial samples at 2-6 hour intervalsare re quired to rule out acute myocardial injury. Rashid Lizama
== END 2020-05-16 11:40 | disposition home or self-care (01) ==
LOC: ER 15:23 → ERHOLD 19:21 → 4TH 19:58
PROVIDERS: ADMIT Hospitalist; ATTEND Hospitalist
DX: R07.89 Other chest pain (principal); K21.9 Gastro-esophageal reflux disease without esophagitis; R94.31 Abnormal electrocardiogram [ECG] [EKG]; Z20.828 Contact with and (suspected) exposure to other viral communicable diseases
CPT/HCPCS: 36415; 71045; 71275; 80048; 80076; 81003; 81015; 83735; 83880; 84484; 85025; 85379; 87086; 87088; 90471; 90732; 93005; 99285; G0378; J1644; Q2035; Q9967; U0002